=== PATIENT | male | born 1995 | race Hispanic/Latino ===

== ENCOUNTER 2019-04-10 23:44 | Emergency (ER) | payer BC ==
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
== END 2019-04-11 00:39 | disposition home or self-care (01) ==
LOC: ERS 23:44
DX: S20.211A Contusion of right front wall of thorax, initial encounter (principal); V89.2XXA Person injured in unspecified motor-vehicle accident, traffic, initial encounter
CPT/HCPCS: 71045; G0390